=== PATIENT | male | born 2000 | race Native Hawaiian/Other Pacific Islander ===

== ENCOUNTER → 2022-01-20 | Outpatient (CLI) | payer OTHER ==
--- NOTE | 2022-01-20 17:24 | Diagnostic Imaging Report ---
EXAMINATION: Lumbosacral spine 2 or 3 views. HISTORY: Left-sided back pain x 2 weeks. Worse over the past 2 days. COMPARISON: None available. FINDINGS: 3 views of the lumbar spine demonstrate normal height and alignment of the vertebral bodies with no fracture or dislocation appreciated. Intervertebral disc space is maintained. Soft tissues unremarkable. IMPRESSION: Negative lumbar spine. Dictated by: Dictated on workstation # [id number]
== END ==
LOC: RAD 12:30
PROVIDERS: ATTEND Nurse Practitioner Family
DX: M54.89 Other dorsalgia (principal)
CPT/HCPCS: 72100